=== PATIENT | female | born 1975 | race Caucasian/White ===

== ENCOUNTER 2024-03-21 11:36 | Emergency (ER) | payer OTHER, MEDICARE, MEDICAID ==
[2024-03-21] MEDS: Midazolam 1 MG/ML 5 ML SDV IVPUSH ONE ×2 (12:11→12:25)
[2024-03-21] MEDS: Midazolam 1 MG/ML 2 ML SDV IVPUSH ONE ×2 (12:11→12:25)
[2024-03-21] MEDS: Etomidate 2 MG/ML 20 ML SDV IVPUSH ONE ×2 (12:12→12:22)
[2024-03-21] MEDS: Succinylcholine 200 MG/10 ML MDV IV ONE ×2 (12:13→12:23)
[2024-03-21] MEDS: Sodium Bicarbonate 8.4% 50 MEQ/50 ML Syringe IVPUSH ONE (12:39)
[2024-03-21] MEDS: cefTRIAXone 2 GM in Sodium Chloride 0.9% 100 ML IV ONE (12:40)
[2024-03-21] MEDS: cefTRIAXone 2 GM Vial ONE (12:43)
[2024-03-21] MEDS: Sodium Chloride 0.9% 1,000 ML IV SCH (12:44)
[2024-03-21] MEDS: Sodium Chloride 0.9% 100 ML ONE (12:47)
[2024-03-21] MEDS: propofoL 100 ML IV SCH (13:18)
[2024-03-21] MEDS: propofoL 100 ML ONE (13:20)
[2024-03-21] MEDS: metroNIDAZOLE/Normal Saline 500 MG in Premix Bag 1 BAG IV ONE (13:25)
[2024-03-21 13:28] LABS: BASE EXCESS ARTERIAL -0.7 (-2-2.0); BICARBONATE,ARTERIAL 24.3 meq/L (22.0-26.0); O2 SATURATION ARTERIAL 95.1 % (96.0-97.0); PCO2 ARTERIAL 43.5 mmHg (35.0-45.0)
[2024-03-21 13:28] LABS: BASOPHILS PERCENT AUTO 0.1 % (0.0-1.0); HEMOGLOBIN 13.4 gm/dl (12.0-16.0); IMMATURE GRAN ABSOLUTE AUTO 0.24 K/mm3 (0.00-0.05); IMMATURE GRAN PERCENT AUTO 0.9 % (0.0-0.4); LYMPHOCYTES ABSOLUTE AUTO 0.7 K/mm3 (1.0-4.8); LYMPHOCYTES PERCENT AUTO 2.7 % (24.0-44.0); MEAN CORPUSCULAR HEMOGLOBIN 28.4 pg (28.0-32.0); MEAN CORPUSCULAR HGB CONC 35.3 g/dl (32.0-36.0); MEAN CORPUSCULAR VOLUME 80.5 fl (83.0-99.0); MEAN PLATELET VOLUME 10.2 fl (9.4-12.3); MONOCYTES ABSOLUTE AUTO 2.1 K/mm3 (0.0-0.8); MONOCYTES PERCENT AUTO 8.2 % (0.0-8.0); NEUTROPHILS ABSOLUTE AUTO 22.5 K/mm3 (1.8-7.7); NEUTROPHILS PERCENT AUTO 88.1 % (41.0-71.0); PLATELET COUNT,PLT 409 K/mm3 (150-400); RED BLOOD CELL COUNT 4.72 M/mm3 (4.10-5.30); WHITE BLOOD CELL COUNT,WBC 25.58 K/mm3 (3.9-11.3)
[2024-03-21 13:42] LABS: INR 1.06; PROTHROMBIN TIME 11.2 SECONDS (9.7-12.0)
[2024-03-21 13:44] LABS: HEMOGLOBIN A1C 5.1 %; PTT,PARTIAL THROMBOPLSTIN TIME 29.6 SECONDS (21.7-31.4)
[2024-03-21 13:46] LABS: LACTIC ACID 1.2 mmol/L (0.4-2.0)
[2024-03-21 13:47] LABS: A/G RATIO 1.2 (1-2); ALANINE AMINOTRANSFERASE,ALT 30 U/L (14-59); ALBUMIN 3.5 g/dl (3.4-5.0); ALKALINE PHOSPHATASE 46 U/L (46-116); ANION GAP 13.4 (5-15); ASPARTATE AMNIOTRANSFERASE,AST 55 U/L (15-37); BILIRUBIN TOTAL 0.8 mg/dL (0.2-1.0); BLOOD UREA NITROGEN,BUN 5 mg/dL (7-18); BUN/CREATININE RATIO 8.3 (14-18); C-REACTIVE PROTEIN 4.53 mg/dL (<0.30); CALCIUM 8.5 mg/dL (8.5-10.1); CARBON DIOXIDE,CO2 23 mEq/L (21-32); CHLORIDE,CL 87 mEq/L (98-107); CREATININE 0.6 mg/dL (0.55-1.02); ESTIMATED GFR 111 mL/min (>60); GLUCOSE RANDOM 107 mg/dL (70-99); MAGNESIUM 1.2 mg/dL (1.8-2.4); POTASSIUM,K 3.4 mEq/L (3.5-5.1); PROTEIN TOTAL,TP 6.5 g/dl (6.4-8.2); SODIUM,NA 120 mEq/L (136-145); TROPONIN I HIGH SENSITIVITY 5 pg/mL (<=51)
[2024-03-21] MEDS: Acetaminophen 650 MG Supp RECTAL ONE (14:25)
[2024-03-21] MEDS: Rocuronium 50 MG/5 ML Vial IVPUSH ONE ×2 (14:30→15:49)
[2024-03-21 14:52] LABS: CORONAVIRUS COVID-19 NAA NEGATIVE (NEGATIVE); INFLUENZA A NAA NEGATIVE (NEGATIVE); RESPIRATORY SYNCYTIAL VIR NAA NEGATIVE (NEGATIVE)
[2024-03-21 15:09] LABS: APPEARANCE,URINE CLEAR (Clear); BILIRUBIN,URINE NEGATIVE (Negative); COLOR,URINE YELLOW (Yellow); GLUCOSE,URINE NEGATIVE (Negative); KETONES,URINE 4+ (Negative); LEUKOCYTE ESTERASE,URINE NEGATIVE (Negative); NITRITE,URINE NEGATIVE (Negative); OCCULT BLOOD,URINE 1+ (Negative); PH,URINE 6.5 (5.0-8.0); PROTEIN,URINE 1+ (Negative); UROBILINOGEN,URINE 0.2 (0.2-1.0)
[2024-03-21 15:18] LABS: BACTERIA,URINE FEW /hpf (FEW); SQUAMOUS EPITHELIAL CELLS,UR 0-5 /hpf (0-5); WBC,URINE 0-5 /hpf (0-5)
[2024-03-21 15:19] LABS: MUCUS,URINE FEW /hpf (FEW)
[2024-03-21 16:14] VITALS: BP 173/90; PULSE 98
== END 2024-03-21 16:17 ==
LOC: JD.ED 11:36
DX: R56.9 Unspecified convulsions (principal); E87.1 Hypo-osmolality and hyponatremia; E83.42 Hypomagnesemia; Z91.148 Patient's other noncompliance with medication regimen for other reason; J44.9 Chronic obstructive pulmonary disease, unspecified; E03.9 Hypothyroidism, unspecified; Z79.890 Hormone replacement therapy; Z79.899 Other long term (current) drug therapy; Z88.0 Allergy status to penicillin; Z88.8 Allergy status to other drugs, medicaments and biological substances
CPT/HCPCS: 0241U; 31500; 36415; 36600; 43752; 51702; 70450; 71045; 80053; 81001; 82803; 83036; 83605; 83735; 83880; 84484; 85025; 85610; 85730; 86140; 93005; 96365; 96366; 96367; 96368; 96375; 99285; A9270; J0330; J0696; J1836; J2250; J2704; J3490; J7030; 93010; 99291; 99292